=== PATIENT | female | born 1965 | race Two or more races ===

== ENCOUNTER 2020-04-24 08:11 | Outpatient (CLI) | payer OTHER | END 2020-04-24 08:21 | disposition home or self-care (01) | LOC: MAMO-SONO 08:11 | PROVIDERS: ATTEND Obstetrics & Gynecology Gynecology | DX: Z12.31 Encounter for screening mammogram for malignant neoplasm of breast (principal); N60.29 Fibroadenosis of unspecified breast; R16.0 Hepatomegaly, not elsewhere classified ==